=== PATIENT | male | born 1945 ===

== ENCOUNTER 2018-05-08 07:59 | Day surgery (SDC) | payer OTHER ==
[~2018-05-08 07:59] MED LIST: BENTYL10 MG/ML IM; INTESTINEX680 MG PO; LANZOPRAZOLE PO; LOTREL 10/40 MG1 CAP PO; OXYC1TAB9 PO; PEPCID40 MG PO; TAMS0.4C PO
== END 2018-05-08 13:10 | disposition home or self-care (01) ==
LOC: AMB-ENDOS 07:59 → CIR.AMB 11:15 → AMB-ENDOS 11:15
DX: K57.30 Diverticulosis of large intestine without perforation or abscess without bleeding (principal); K64.8 Other hemorrhoids